=== PATIENT | female | born 1975 | race Caucasian/White ===

== ENCOUNTER 2016-11-04 15:17 | Emergency (ER) | payer OTHER ==
[~2016-11-04] VITALS: Ht 170.2 cm; Wt 115.8 kg
[2016-11-04] MEDS ORDERED: SODIUM CHLORIDE FLUSH 10ML SYR IVF ONE (15:30)
[2016-11-04] MEDS ORDERED: SODIUM CHLORIDE 0.9% 1,000ML IVBOLUS ONE (15:30)
[2016-11-04] MEDS ORDERED: OXYC-229 PO (15:52)
[2016-11-04 15:59] LABS: ASPARTATE AMINO TRANSFERASE 13 U/L (15-37); BLOOD UREA NITROGEN 13 mg/dL (7-18)
[2016-11-04] MEDS ORDERED: GABA800T PO (16:18)
[2016-11-04] MEDS ORDERED: LISI40TA PO (16:18)
[2016-11-04] MEDS ORDERED: HYDR25TA6 PO (16:20)
[2016-11-04] MEDS ORDERED: IBUP200T48 PO (16:20)
[2016-11-04] MEDS ORDERED: OXYcodone/APAP 10/325MG TABLET ONE (16:29)
[2016-11-04] MEDS ORDERED: DIAZEPAM 5 MG TABLET ONE ×2 (16:30→16:37)
[2016-11-04] MEDS ORDERED: DIAZEPAM 5 MG TABLET PO ONE (16:30)
[2016-11-04] MEDS ORDERED: OXYcodone/APAP 10/325MG TABLET PO ONE (16:30)
[2016-11-04 19:03] VITALS: BP 133/80
== END 2016-11-04 19:09 | disposition home or self-care (01) ==
LOC: ED 18:24
DX: R07.89 Other chest pain (principal); R20.9 Unspecified disturbances of skin sensation; R25.2 Cramp and spasm; I10 Essential (primary) hypertension; F17.210 Nicotine dependence, cigarettes, uncomplicated
CPT/HCPCS: 36415; 80053; 84703; 85025; 93005; 96360; 99285; J7030

== ENCOUNTER 2018-10-24 14:43 | Emergency (ER) | payer MEDICAID, OTHER ==
[~2018-10-24] VITALS: Ht 170.2 cm; Wt 117.7 kg
[~2018-10-24 14:43] MED LIST: GABA800T PO; HYDR25TA6 PO; IBUP200T49 PO; LISI40TA PO; OXYC-307 PO
[2018-10-24] MEDS ORDERED: SODIUM CHLORIDE FLUSH 10ML SYR IVF ONE (15:00)
[2018-10-24 15:25] LABS: BASOPHILS # (AUTO) 0.05 x10^3/uL (0-0.1); BASOPHILS % (AUTO) 1 % (0-1); EOSINOPHILS # (AUTO) 0.27 x10^3/uL (0-0.4); EOSINOPHILS % (AUTO) 4 % (1-7); LYMPHOCYTES # (AUTO) 2.57 x10^3/uL (1-3.4); LYMPHOCYTES % (AUTO) 38 % (22-44); MD NO; MEAN CORPUSCULAR HGB CONC 31.2 g/dL (32.4-35.8); MEAN CORPUSCULAR VOLUME 80.2 fL (80-100); MEAN PLATELET VOLUME 7.4 fL (7.4-10.4); MONOCYTES # (AUTO) 0.49 x10^3/uL (0.2-0.8); MONOCYTES % (AUTO) 7 % (2-9); NEUTROPHILS # (AUTO) 3.37 x10^3/uL (1.8-6.8); NEUTROPHILS % (AUTO) 50 % (42-75); PLATELET COUNT 305 x10^3/uL (130-400); RED CELL DISTRIBUTION WIDTH 17.7 % (9.6-15.2)
--- NOTE | 2018-10-24 15:25 | NUR ---
CO N/V AND GERD NO DESCRIPT FEELINGS
[2018-10-24 15:29] LABS: ALANINE AMINOTRANSFERASE 71 U/L (12-78); ALBUMIN 3.2 g/dL (3.4-5.0); ANION GAP 8 mmol/L (5-15); CALCIUM 8.7 mg/dL (8.5-10.1); CHLORIDE 109 mmol/L (98-107); CREATININE 0.81 mg/dL (0.55-1.02)
[2018-10-24 15:31] LABS: ALKALINE PHOSPHATASE 60 U/L (45-117); TOTAL PROTEIN 6.7 g/dL (6.4-8.2)
[2018-10-24 16:02] LABS: BILIRUBIN,TOTAL 0.1 mg/dL (0.2-1.0)
[2018-10-24 16:09] LABS: HCG UR SG 1.031 (1.003-1.030); MICROSCOPIC NOT IND
--- NOTE | 2018-10-24 16:10 | NUR ---
NO NAUSEA NOTED
[2018-10-24 16:11] LABS: CULTURE INDICATED? NO
--- NOTE | 2018-10-24 17:33 | NUR ---
PT RESTING WAITING ON RESULTS
[2018-10-24 19:04] VITALS: BP 156/92
== END 2018-10-24 19:06 | disposition home or self-care (01) ==
LOC: ED 17:08
DX: R10.13 Epigastric pain (principal); N28.89 Other specified disorders of kidney and ureter; M19.90 Unspecified osteoarthritis, unspecified site; Z87.891 Personal history of nicotine dependence; Z97.10 Presence of artificial limb (complete) (partial), unspecified
CPT/HCPCS: 36415; 76700; 80053; 81003; 81025; 83690; 85025; 99284